=== PATIENT | male | born 1975 | race Caucasian/White ===

== ENCOUNTER 2022-08-19 11:13 | Emergency (ER) | payer BC, SELFPAY ==
[2022-08-19 11:16] VITALS: BP 121/75; PULSE 69; RESP 22; TEMP 35.7; O2SAT 97; BMI 33.3
[2022-08-19] MEDS: 0.9 % SODIUM CHLORIDE 1000 ml 1,000 ML IV ×2 (11:43→12:54)
[2022-08-19 11:46] LABS: Appearance Urine Cloudy (Clear); Bilirubin Urine 3+ (Negative); Blood Urine 3+ (Negative); Color Urine Brown (Yellow); Glucose Urine Negative (Negative); Ketones Urine 1+ (Negative); Leukocyte Esterase Urine Negative (Negative); Nitrite Urine Negative (Negative); Protein Urine 3+ (Negative); Specific Gravity Urine >= 1.030 (1.000-1.030); pH Urine 5.5 (5.0-8.5)
[2022-08-19] MEDS: KETOROLAC 30 MG/ML inj IVP (11:46)
[2022-08-19 11:48] LABS: Basophils Percent Auto 0.3 % (0.0-3.0); Eosinophils Percent Auto 0.9 % (0.0-7.0); Hematocrit 47.7 % (37.0-53.0); Hemoglobin* 16.6 gm/dL (13.5-17.5); Immature Granulocytes Pct Auto 0.3 %; Lymphocytes Percent Auto 20.6 % (20-44); Mean Corpuscular HGB Conc 35 gm/dL (32-36); Mean Corpuscular Hemoglobin 31 pg (26-34); Mean Corpuscular Volume 89 fL (80-100); Monocytes Percent Auto 7.4 % (0.0-11.0); Neutrophils Percent Auto 70.5 % (42.0-72.0); Platelet Count* 236 K/uL (140-440); Red Blood Count 5.37 m/uL (4.30-5.90)
[2022-08-19] MEDS: LORazepam 2 MG/ML inj 0.5 MG IVP (11:48)
[2022-08-19 11:51] LABS: Slide Review Reflex No
[2022-08-19 12:02] LABS: Chloride* 103 mmol/L (96-114); Sodium* 138 mmol/L (135-149)
[2022-08-19 12:03] LABS: Potassium* 3.5 mmol/L (3.6-5.1); RBC Urine >100 (0-2)
[2022-08-19 12:04] LABS: Bacteria Urine Many; Squamous Epithelial Cell Urine Few (None-Few)
[2022-08-19 12:05] LABS: Creatinine* 1.2 mg/dL (0.5-1.5); Est. Creatinine Clearance* 66.91; Estimated Glomerular Filt Rate 76 ml/min
[2022-08-19 12:06] LABS: Blood Urea Nitrogen* 13 mg/dL (5-24); Calcium* 9.6 mg/dL (8.4-10.6); Carbon Dioxide* 27 mmol/L (20-32); Glucose* 124 mg/dL (60-115); Mucus Urine Few
[2022-08-19 12:09] LABS: C Reactive Protein* 1.1 mg/dL (0.5-1.0)
[2022-08-19 12:49] VITALS: BP 139/101; PULSE 69; RESP 18; O2SAT 96
--- NOTE | 2022-08-19 13:30 | ED_ITS ---
HPI - General Adult General Date Seen: 08/19/22 Chief complaint: Back Injury/Pain Stated complaint: Lower back/groin pain Time Seen by Provider: 08/19/22 11:22 Source: patient Mode of arrival: ambulatory Limitations: no limitations History of Present Illness HPI narrative: Patient is the 47-year-old gentleman who presents ambulatory to the emergency room for evaluation of right-sided back pain with right groin pain, 4 days ago was diagnosed with right-sided renal colic, something that he has had he tells me 15 times in the last 15 years. He has always been able to pass this without an issue. Is not required instrumentation from Urology. No fevers chills or sweats but today the pain is so bad, he is not able to work, been using his Percocet for the discomfort but no other nonsteroidals for discomfort. Does he follow up that he could use them together. He has also been taking Flomax, and Keflex for a possible UTI. He was seen in the [place] [address] emergency room for this. Presents here as he is lives in [place]. Denies nausea vomiting, diarrhea, dysuria frequency, chest pain shortness of breath, neck pain or stiffness or rashes. Related Data Home Medications Medication Instructions Recorded Confirmed diclofenac sodium 75 mg 75 mg PO BID PRN 01/15/22 01/29/22 tablet,delayed release cephalexin 500 mg capsule 500 mg PO 3XD 08/19/22 08/19/22 oxycodone 5 mg tablet 5 - 10 mg PO Q6H PRN pain 08/19/22 08/19/22 tamsulosin 0.4 mg capsule 0.4 mg PO DAILY 08/19/22 08/19/22 Previous Rx's Medication Instructions Recorded bupropion HCl 150 mg 24 hr tablet, 150 mg PO QAM #14 tabs 01/15/22 extended release (Wellbutrin XL) bupropion HCl 300 mg 24 hr tablet, 300 mg PO QAM #30 tabs 01/15/22 extended release (Wellbutrin XL) diclofenac sodium 1 % topical gel 2 g topical QID #100 grams 01/22/22 (Voltaren Arthritis Pain) meloxicam 15 mg tablet 15 mg PO QDAY #30 tabs 01/22/22 zolpidem 10 mg tablet 10 mg PO QHS PRN sleep #30 tabs 07/29/22 Allergies Allergy/AdvReac Type Severity Reaction Status Date / Time aspirin Allergy Severe throat Verified 08/19/22 11:21 swelling, breathing issues Review of Systems Status of ROS: Reports: 10 or more systems reviewed and unremarkable except as noted in History and below [facility] Medical History Tobacco abuse ?Z72.0 - Tobacco use (ICD-10) Social phobia (04/21/10) ?F40.10 - Social phobia, unspecified (ICD-10) Seasonal allergies ?J30.2 - Other seasonal allergic rhinitis (ICD-10) Major depressive disorder with single episode (04/21/10) ?F32.9 - Major depressive disorder, single episode, unspecified (ICD-10) History of renal calculi (2011) ?Z87.442 - Personal history of urinary calculi (ICD-10) Insomnia ?G47.00 - Insomnia, unspecified (ICD-10) Surgical History History of shoulder surgery (2004) ?Z98.890 - Other specified postprocedural states (ICD-10) History of open reduction and internal fixation (ORIF) procedure (06/03/19) ?Z98.890 - Other specified postprocedural states (ICD-10) Social History 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: , 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, 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, 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, 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 Smoking Status: Current some day smoker What tobacco products do you use: cigarettes Do you use any of these nicotine containing products: Smokeless Tobacco Second hand tobacco smoke exposure: Yes How often do you have a drink containing alcohol: monthly or less How many standard drinks containing alcohol do you have on a typical day: 1 or 2 How often do you have six or more drinks on one occasion: Never AUDIT-C Alcohol total score: 1 Non-prescribed substance use: denies use Little interest or pleasure in doing things: not at all Feeling down, depressed, or hopeless: not at all service: No Exam Narrative: Exam Narrative: On examination he is in no apparent distress seen in room 3, but a little bit pale looking. Pupils are equal round reactive to light ,oropharynx is normal little dry, neck is supple with chest has good air entry bilaterally, heart sounds are normal, his abdomen is soft, no guarding normal bowel sounds, no evidence of any other abnormality. No tenderness to palpation over his back is a negative Mcneal's test, testicles both descended and normal, there is no evidence of any abnormality Const: Vital Signs, click to edit/add: Vital Signs - 24 hr 08/19/22 11:16 08/19/22 12:49 Temperature 96.2 F L Pulse Rate [Right Pulse Oximeter] 69 69 Respiratory Rate 22 18 Blood Pressure [Ri ght Upper Arm] 121/75 139/101 H Pulse Oximetry 97 96 Oxygen Delivery Me thod Room Air Room Air Documenting provider has reviewed patient's vital signs: yes Course Course Hospital Course: I was able to get his notes from [place], he had a 4 mm stone just above the UVJ on the right side, with moderate hydronephrosis. His urinalysis did show any white cells occasional bacteria, and positive nitrite. He grew out mixed alpesh less than 10,000 so that was a contaminant. Laboratory work here was reassuring, I do not see any evidence here of any infection, and I would like him to use the ibuprofen as the Toradol work very well for his pain. We gave him a couple L fluid, and he improved markedly here, I think going home with use of ibuprofen 1st line for the pain and some oxycodone secondary would be the rate ago. I did give him another 10 tablets, reviewed the [employer] this did not show a bunch of illicit prescriptions. Warned him about the affects of narcotics, side effects, and risk of addiction. In made him appointment to see his primary care doctor in 2 days, gave him advice on when to re-presented. Vital Signs Vital signs: Initial Vital Signs Temperature 96.2 F L 08/19/22 11:16 Temperature Source Temporal Artery Scan 08/19/22 11:16 Pulse Rate 69 08/19/22 11:16 Respiratory Rate 22 08/19/22 11:16 Blood Pressure 121/75 08/19/22 11:16 Blood Pressure Mean 90 08/19/22 11:16 Blood Pressure Position Sitting 08/19/22 11:16 Pulse Oximetry 97 08/19/22 11:16 Oxygen Delivery Method Room Air 08/19/22 11:16 Vital Signs Temperature 96.2 F L 08/19/22 11:16 Pulse Rate 69 08/19/22 11:16 Respiratory Rate 22 08/19/22 11:16 Blood Pressure 121/75 08/19/22 11:16 Pulse Oximetry 97 08/19/22 11:16 Oxygen Delivery Method Room Air 08/19/22 11:16 Temperature 96.2 F L 08/19/22 11:16 Pulse Rate 69 08/19/22 12:49 Respiratory Rate 18 08/19/22 12:49 Blood Pressure 139/101 H 08/19/22 12:49 Pulse Oximetry 96 08/19/22 12:49 Oxygen Delivery Method Room Air 08/19/22 12:49 Medical Decision Making MDM Narrative Medical decision making narrative: During this evaluation of this patient I considered multiple differential diagnosis is which included the life-threatening such as appendicitis, aortic aneurysm, mesenteric ischemia, bowel perforation, volvulus, and bowel obstruction. Other differential diagnosis is include but are not limited to cholecystitis, pancreatitis, hepatitis, gastritis, GERD, diverticulitis, peptic ulcer disease, pyelonephritis/UTI, renal colic/stone, testicular torsion as well as other acute scrotal processes, inflammatory bowel disease, as well as other etiologies Medical Records Medical records reviewed: Yes I reviewed the patient's medical records Lab Data Lab results reviewed: Yes I reviewed the patient's lab results Labs: Lab Results 08/19/22 08/19/22 Range/Units 11:37 12:19 WBC 11.30 H (4.50-11.00) K/uL RBC 5.37 (4.30-5.90) m/uL Hgb 16.6 (13.5-17.5) gm/dL Hct 47.7 (37.0-53.0) % MCV 89 (80-100) fL MCH 31 (26-34) pg MCHC 35 (32-36) gm/dL RDW Coeff of Christine 12.0 (11.5-15.5) % Plt Count 236 (140-440) K/uL Neut % (Auto) 70.5 (42.0-72.0) % Lymph % (Auto) 20.6 (20-44) % [place] % (Auto) 7.4 (0.0-11.0) % Eos % (Auto) 0.9 (0.0-7.0) % Baso % (Auto) 0.3 (0.0-3.0) % Neut # (Auto) 8.00 H (1.7-7.0) K/uL Lymph # (Auto) 2.30 (0.90-2.90) K/uL [place] # (Auto) 0.80 (0.00-0.90) K/UL Eos # (Auto) 0.10 (0.00-0.50) K/uL Baso # (Auto) 0.00 (0.00-0.30) K/uL Sodium 138 (135-149) mmol/L Potassium 3.5 L (3.6-5.1) mmol/L Chloride 103 (96-114) mmol/L Carbon Dioxide 27 (20-32) mmol/L BUN 13 (5-24) mg/dL Creatinine 1.2 (0.5-1.5) mg/dL Estimated Creat Clear 66.91 Estimated GFR 76 ml/min Glucose 124 H (60-115) mg/dL Lactate 2.0 H (0.5-1.9) mmol/L Calcium 9.6 (8.4-10.6) mg/dL C-Reactive Protein 1.1 H (0.5-1.0) mg/dL Urine Color Brown A (Yellow) Urine Appearance Cloudy A (Clear) Urine pH 5.5 (5.0-8.5) Ur Specific [place] >= 1.030 (1.000-1.030) Urine Protein 3+ A (Negative) Urine Glucose (UA) Negative (Negative) Urine Ketones 1+ A (Negative) Urine Blood 3+ A (Negative) Urine Nitrite Negative (Negative) Urine Bilirubin 3+ A (Negative) Urine Urobilinogen 1.0 (0.2-1.0) Ur Leukocyte Esterase Negative (Negative) Urine RBC >100 A (0-2) Urine WBC 2-5 (0-5) Ur Squamous Epith Cells Few (None-Few) Urine Bacteria Many A (None) Urine Mucus Few A (None) Lab Acknowledgement Test Added Discharge Plan Discharge Clinical Impression: Renal colic, Dehydration Patient Disposition: Home w/ Parent or Adult Condition: Improved Instructions: Dehydration (DC), Renal Colic (ED) Additional Instructions: Home rest use of ibuprofen 800 mg 3 times a day for the next 3 days. Continue with your other medications, I would just use the Percocet for breakthrough pain. Return here if fevers chills nausea vomiting, or worsening symptoms, the ibuprofen is really the drug of choice for this, and works really well. We have set you up for follow-up appoint with her primary care physician in 2 days for recheck. Follow up appointment is scheduled at the [facility] on 08/21 with a 10am appointment time. If you have any questions or need to reschedule, please call [phone]. [facility] [address] [place] [address] Prescriptions: No Action diclofenac sodium 75 mg tablet,delayed release (DR/EC) 75 mg PO BID PRN bupropion HCl [Wellbutrin XL] 150 mg tablet extended release 24 hr 150 mg PO QAM Qty: 14 0RF bupropion HCl [Wellbutrin XL] 300 mg tablet extended release 24 hr 300 mg PO QAM Qty: 30 2RF meloxicam 15 mg tablet 15 mg PO QDAY Qty: 30 0RF diclofenac sodium [Voltaren Arthritis Pain] 1 % gel 2 g topical QID Qty: 100 0RF tamsulosin 0.4 mg capsule 0.4 mg PO DAILY cephalexin 500 mg capsule 500 mg PO 3XD oxycodone 5 mg tablet 5 - 10 mg PO Q6H PRN (Reason: pain) zolpidem 10 mg tablet 10 mg PO QHS PRN (Reason: sleep) Qty: 30 5RF Follow Up/Referrals: Kevin Rios MD [Primary Care Provider] - Stand Alone Forms: [employer] Info Instructions
[2022-08-19 13:44] VITALS: BP 147/102; PULSE 67; RESP 18; TEMP 36.6; O2SAT 97
[2022-08-19 13:46] LABS: Procalcitonin* 0.07 ng/mL (<0.50)
== END 2022-08-19 13:57 | disposition home or self-care (01) ==
PROVIDERS: Emergency Provider Family Medicine; PCP Family Medicine
DX: N23 Unspecified renal colic (principal); E86.0 Dehydration
CPT/HCPCS: 36415; 80048; 81001; 83605; 84145; 85025; 86140; 87086; 96361; 96374; 96375; 99284; J1885; J2060; J7030

== ENCOUNTER 2023-02-03 08:29 | Outpatient (CLI) | payer BC, SELFPAY | END 2023-02-03 08:30 | disposition home or self-care (01) | PROVIDERS: PCP Family Medicine; Visit Provider Family Medicine | DX: E78.2 Mixed hyperlipidemia (principal) | CPT/HCPCS: 80048; 80061 ==

== ENCOUNTER 2024-02-09 11:25 | Outpatient (CLI) | payer BC, SELFPAY ==
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
== END 2024-02-09 11:26 | disposition home or self-care (01) ==
LOC: FBOREF 11:26
PROVIDERS: PCP Family Medicine; Visit Provider Family Medicine
DX: Z01.818 Encounter for other preprocedural examination (principal)
CPT/HCPCS: 80048; 85025

== ENCOUNTER 2024-02-12 06:18 | Day surgery (SDC) | payer BC, SELFPAY ==
[2024-02-12] VITALS (12 sets, daily range): BP systolic 101–131; BP diastolic 70–90; PULSE 53–75; RESP 14–16; TEMP 36.1–36.6; O2SAT 90–95; BMI 33.7
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
[2024-02-12] MEDS: SODIUM CHLORIDE 0.9 % (FLUSH) 10 ML SYRINGE IVF (06:41)
[2024-02-12] MEDS: 0.9 % SODIUM CHLORIDE 500 ML 500 ML 100 ML IV ×2 (07:36→08:44)
--- NOTE | 2024-02-12 07:41 | W.PM.H&PU ---
History & Physical Update History & Physical Update H&P Reviewed and patient assessed: No changes noted
[2024-02-12] MEDS: CEFAZOLIN 1 GM inj IVP (07:49)
--- NOTE | 2024-02-12 07:59 | W.ANESCHARGE ---
Anesthesia Charges Start Date/Time Anesthesia Start Date: 02/12/24 Anesthesia Start Time: 07:37 Stop Date/Time Anesthesia Stop Date: 02/12/24 Anesthesia Stop Time: 09:15
[2024-02-12] MEDS: BUPIVACAINE 0.5% 30 ML INJECTION (08:10)
--- NOTE | 2024-02-12 09:09 | PM.GSPRC ---
Operative Note Date of procedure: 02/12/24 Pre-op diagnosis: Chronic cholecystitis Post-op diagnosis: Same Type of Procedure: Laparoscopic cholecystectomy Indications: Patient is a 48-year-old male who presented to clinic with clinical workup and symptoms consistent with chronic cholecystitis. Different treatment options were reviewed with patient deciding to pursue surgical intervention. Risks and benefits of operative intervention were discussed at length with the patient. Risks included but was not limited to: Bleeding, infection, risk of damage to surrounding structures, possible need for additional procedures, possible need to convert to an open operation and postoperative complications such as pneumonia, pulmonary emboli or OH. All questions and concerns were addressed with the patient agreeing to proceed. Procedure Description: After discussing the risks and benefits of the procedure, the patient signed informed consent.? The operative site was marked and the patient was brought to the operating room and placed on the operating table in supine position.? Care was taken to pad the patient's pressure points.?? The patient was then intubated by anesthesia.?? The operative site was then prepped and draped in the usual sterile fashion.? A time-out was then performed. Entrance to the abdomen was gained via a 5 mm Visiport in the left upper quadrant. The abdomen was insufflated and briefly surveyed for signs of injury. There was none. 11 mm supra umbilical port was placed as well as 2 working ports along the right costal margin. Patient was then placed in reverse Trendelenburg position with the right side up. The gallbladder fundus was grasped and retracted cephalad. The infundibulum was grasped. A combination of hook cautery and blunt dissection was used to carefully dissect out the cystic duct and artery until they could clearly be seen entering the gallbladder without any intervening structures. The gallbladder was dissected off the cystic plate to achieve the critical view. Once this was achieved the cystic duct and artery were each clipped with 2 clips proximally and 1 clip distally and transected with the scissors. The gallbladder was then taken off of the liver bed and removed from the abdomen using an Endo-Catch bag. A small tear on the liver with seen within the gallbladder fossa, this was cauterized with no evidence of bleeding. There was some oozing around the clipped cystic duct. This bleeding was controlled with pressure and the application of Radha. At the end of the case the hemostasis was excellent. The ports were then removed under direct vision. The supra umbilical port fascia was closed with 0 Vicryl. The skin was closed with absorbable subcuticular suture. Instrument sponge and needle counts were correct at the end of the case. The patient was then woken and transferred to the PACU in stable condition. Findings: Cholelithiasis Anesthesia: GETA Surgeon: Billie Reyes MD Estimated blood loss (mL): 5 Specimen: Gallbladder Condition: stable Disposition: PACU
--- NOTE | 2024-02-12 09:17 | W.ANESCHARGE ---
Anesthesia Charges Start Date/Time Anesthesia Start Date: 02/12/24 Anesthesia Start Time: 07:37 Stop Date/Time Anesthesia Stop Date: 02/12/24 Anesthesia Stop Time: 09:15
[2024-02-12] MEDS: ONDANSETRON 2 MG/ML inj 4 MG IVP (09:26)
== END 2024-02-12 10:49 | disposition home or self-care (01) ==
PROVIDERS: PCP Family Medicine; Visit Provider Surgery
PROC: 0FT44ZZ Resection of Gallbladder, Percutaneous Endoscopic Approach (ICD-10-PCS; CPT 47562; principal; 2024-02-12 07:30)
DX: K80.10 Calculus of gallbladder with chronic cholecystitis without obstruction (principal)
CPT/HCPCS: 47562; 00790; 88304; J0330; J0665; J0690; J1100; J1171; J1885; J2250; J2371; J2405; J2704; J2710; J3010; J7030

== ENCOUNTER 2024-06-21 09:19 | Outpatient (CLI) | payer BC, SELFPAY ==
--- NOTE | 2024-06-21 09:15 | MR_ITS ---
[address] [address] Phone:?[phone] Fax:?[phone] Referring Physician Information: Aaron Duque [address] [facility] [address] Phone:?[phone] Fax:?[phone] Patient:?Gigi Ramos D.O.B:?1975 Sex:?Male Phone:?[phone] [facility] MRN:?[id number] Exam Date:?06/21/2024 EXAM: MRI EXAMINATION OF THE LEFT KNEE CLINICAL INFORMATION: Left knee pain. Status post fall with injury. Possible ACL tear. TECHNICAL INFORMATION: Coronal PD and STIR. Axial PD and T2 fat saturation. Sagittal PD and PD fat saturation images acquired. No prior studies for comparison. INTERPRETATION: Bones: There is a 1.3 cm geographic bone lesion centrally situated within the proximal metaphyseal tibia. Lobulated appearance of predominant high T2 signal intensity lesion without surrounding bone marrow edema signal. This is an indolent appearing and likely chondroid lesion and may represent enchondroma. No evidence for an occult fracture or osseous contusion. No other abnormal bone marrow edema pattern is identified. Ligaments and tendons: The medial collateral ligament is intact, without acute sprain or tear. The iliotibial band, fibular collateral ligament, biceps femoris tendon and popliteus tendon all are intact. The anterior cruciate ligament is intact without acute sprain or tear. The posterior cruciate ligament is intact. Extensor Mechanism: The patellar and quadriceps tendons are intact. The medial and lateral retinacula are intact. Knee Joint: There is no knee joint effusion. There is a small popliteal cyst. There is no discrete loose body seen within the joint. Medial Compartment: There is fraying/mild tearing involving the inner portion and apical margin within the body of the medial meniscus. There is no other medial meniscal tear. No displaced flap fragment or parameniscal cyst. There is no focal chondral defect. Mild chondral thinning involves the medial joint compartment. Lateral Compartment: There is no evidence for discrete lateral meniscal tear. No displaced flap fragment or parameniscal cyst. There is no focal chondral defect. No other significant changes of chondromalacia. Patellofemoral articulation: There is no focal chondral defect. No other significant chondromalacia. CONCLUSION: 1. Fraying/mild tearing involves the inner portion and apical margin within the body of the medial meniscus. 2. No lateral meniscal tear. The cruciate ligaments are normally intact. 3. The articular cartilage of the knee is preserved. 4. No evidence for a knee joint effusion. There is a small popliteal cyst. 5. No occult fracture or osseous contusion. KES Electronically signed on 06/21/2024 11:40:00 AM by Lopez Rodrigues M.D.
== END 2024-06-21 09:20 | disposition home or self-care (01) ==
LOC: MRI 09:19
PROVIDERS: PCP Family Medicine; Visit Provider Physician Assistant
DX: M25.562 Pain in left knee (principal); S83.242A Other tear of medial meniscus, current injury, left knee, initial encounter
CPT/HCPCS: 73721

== ENCOUNTER 2024-06-28 16:27 | Emergency (ER) | payer BC, SELFPAY ==
[2024-06-28] VITALS (18 sets, daily range): BP systolic 107–143; BP diastolic 77–97; PULSE 69–88; RESP 10–24; TEMP 36.1; O2SAT 88–98; BMI 33.3
--- NOTE | 2024-06-28 16:46 | ED.LOWEXIN ---
HPI - Extremity Injury (Lower) General Time Seen by Provider: 16:46 Date Seen: 06/28/24 Chief Complaint: Extremity Pain/Injury, Lower Stated Complaint: broken leg Time Seen by Provider: 06/28/24 16:38 Source: patient, family and RN notes reviewed Mode of arrival: ambulatory Limitations: no limitations History of Present Illness HPI Narrative: Patient is a 49-year-old male brought in by his son with concern of significant injury to his left lower leg, it does feel floppy. He denies any numbness tingling in the foot but the leg is extremely painful. Was caring a heavy would slab, got his leg pinned by it/hit in the front of the leg and then actually fell over the slab. The only injury is this left lower leg. He has had a history of open reduction internal fixation of a prior fracture in this leg, notes there are pins and screws, question plated. Nothing else was injured, did not hit his head, no neck or back pain, no other extremity pain. Related Data Previous Rx's ?Medication ?Instructions ?Recorded zolpidem 10 mg tablet 10 mg PO QHS PRN sleep #30 tabs 02/17/24 Allergies Allergy/AdvReac Type Severity Reaction Status Date / Time aspirin Allergy Severe throat Verified 06/25/24 08:59 swelling, breathing issues Review of Systems Narrative: As per HPI. [facility] Medical History (Updated 06/28/24 @ 18:59 by Edwina Zaldivar MD) Mixed hyperlipidemia ?E78.2 - Mixed hyperlipidemia (ICD-10) Tobacco abuse ?Z72.0 - Tobacco use (ICD-10) Social phobia (04/21/10) ?F40.10 - Social phobia, unspecified (ICD-10) Seasonal allergies ?J30.2 - Other seasonal allergic rhinitis (ICD-10) Major depressive disorder with single episode (04/21/10) ?F32.9 - Major depressive disorder, single episode, unspecified (ICD-10) History of renal calculi (2011) ?Z87.442 - Personal history of urinary calculi (ICD-10) Insomnia ?G47.00 - Insomnia, unspecified (ICD-10) Surgical History (Updated 02/09/24 @ 11:22 by Kevin Rios MD) History of open reduction and internal fixation (ORIF) procedure (06/03/19) ?Z98.890 - Other specified postprocedural states (ICD-10) History of shoulder surgery (2004) ?Z98.890 - Other specified postprocedural states (ICD-10) Social History (Updated 06/07/24 @ 09:56 by Miriam Guy ~ [facility], [facility]) 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: , 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, 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, 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, 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 smoker and chewing tobacco quit 12/2023 What is your current living situation?: I presently have a place to live Problems where you live: no known problems In the past 12 months, utilities in danger of being shut off: no In past 12 months, lack of transportation kept you from medical appts, meetings, work, or getting things needed for daily living: no In the past 12 mos, have been you worried that your food would run out before you had money to buy more?: never true In the past 12 mos, the food you bought just didn't last and you didn't have money to buy more?: never true Smoking Status: Former smoker What tobacco products do you use: cigarettes Smoking quit date/years: <= 15 years ago Do you use any of these nicotine containing products: None and Smokeless Tobacco Second hand tobacco smoke exposure: Yes How often do you have a drink containing alcohol: never How often do you have six or more drinks on one occasion: Never AUDIT-C Alcohol total score: 0 Non-prescribed substance use: denies use Caffeine: Yes How often does anyone, including family, friends and others, physically hurt you: never How often does anyone, including family, friends and others, insult or talk down to you: never How often does anyone, including family, friends and others, threaten you with harm: never How often does anyone, including family, friends and others, scream or curse at you: never service: No Exam Const: Vital Signs, click to edit/add: Vital Signs - 24 hr 06/28/24 16:33 06/28/24 16:39 06/28/24 16:45 Temperature 97.0 F L Pulse Rate 86 83 Pulse Rate [Pulse Oximeter] 79 Respiratory Rate 18 Blood Pressure Blood Pressure [Le ft Upper Arm] 114/81 Pulse Oximetry 97 97 97 Oxygen Delivery Me thod Room Air 06/28/24 16:47 06/28/24 17:00 06/28/24 17:01 Temperature Pulse Rate 78 71 Pulse Rate [Pulse Oximeter] Respiratory Rate 24 Blood Pressure 122/82 Blood Pressure [Le ft Upper Arm] Pulse Oximetry 98 94 95 Oxygen Delivery Me thod Room Air This 49-year-old male is alert, interactive but in obvious distress. There is an obvious deformity in his mid anterior lower leg. I can feel dorsalis pedis and posterior tibialis pulses, he feels normal light touch sensation of his toes. He does not have tenderness over the patella or the medial or lateral joint line but he does seem to have some tenderness over that proximal fibula. He is developing some ecchymosis and some swelling in that mid tibial area. Lungs are clear, good air entry, no wheezing or crackles, does have some tachypnea right now which I presume is from pain. CV regular rate and rhythm no murmur. Abdomen is soft. No other abnormality noted in the thigh of his left lower extremity, he is moving his right leg, atraumatic, upper extremities atraumatic. Documenting provider has reviewed patient's vital signs: yes Course Course ED Course: Patient is going to be given some morphine and Zofran, see if he gets some initial pain control, will have him on pulse oximetry to monitor his respiratory status. Nursing staff already has an IV in. He has visible deformity of this leg, do have concern about underlying fracture and definitely concern about development compartment syndrome with this type of injuring where his injury is. Need to get imaging done and have called x-ray to come over to do portable films of his left tib-fib. He is having severe pain right now but no numbness tingling, good pulses distally in his leg. This patient is likely to be a transfer there is underlying fracture. Reevaluation(s) Time of Reevaluation #1: 17:15 Reevaluation #1: Reviewed with patient and his presumed who is now here that there is fracture through the plated area and also proximal fibula fracture. He needs further pain medicine, will order some for him. He had his initial injury repaired at [facility], will try them 1st. If they cannot take his transfer, discussed I will just start contacting other trauma centers that have capacity to fix something of this nature. Time of Reevaluation #2: 18:48 Reevaluation #2: Placed a long leg posterior splint with Ortho Glass. We did not have the bulky padding, had to use routine padding with this splint. He still had intact distal pulses and normal sensation of his toes. Did need to give him some IV ativan for visualized muscle spasms plus some more IV dilaudid. Consultations Consultation #1: Spoke with Kalie RAMESH in the triage center. She is awaiting her films to arrive, will page out Orthopedics. 5:47 p.m.: The resident Dr. Lazo did discuss case with me. They will direct admit this patient to 1 of the orthopedic trauma services. I will put is posterior splint on, they have requested that we do a CT of his tib fib before transfer. We will push these images down. Did update his of the plan. Time: 17:21 Vital Signs Vital signs: Initial Vital Signs Temperature 97.0 F L 06/28/24 16:33 Temperature Source Temporal Artery Scan 06/28/24 16:33 Pulse Rate 79 06/28/24 16:33 Pulse Rhythm Regular 06/28/24 16:33 Respiratory Rate 18 06/28/24 16:33 Blood Pressure 114/81 06/28/24 16:33 Blood Pressure Mean 92 06/28/24 16:33 Blood Pressure Position Supine 06/28/24 16:33 Pulse Oximetry 97 06/28/24 16:33 Oxygen Delivery Method Room Air 06/28/24 16:33 Vital Signs Temperature 97.0 F L 06/28/24 16:33 Pulse Rate 79 06/28/24 16:33 Respiratory Rate 18 06/28/24 16:33 Blood Pressure 114/81 06/28/24 16:33 Pulse Oximetry 97 06/28/24 16:33 Oxygen Delivery Method Room Air 06/28/24 16:33 Temperature 97.0 F L 06/28/24 16:33 Pulse Rate 71 06/28/24 17:01 Respiratory Rate 24 06/28/24 17:01 Blood Pressure 122/82 06/28/24 17:01 Pulse Oximetry 95 06/28/24 17:01 Oxygen Delivery Method Room Air 06/28/24 17:01 Medications Administered Medications: Discontinued Medications Generic Name Dose Route Start Last Admin Trade Name Freq PRN Reason Stop Dose Admin Hydromorphone HCl 0.5 mg 06/28/24 17:22 06/28/24 17:26 Hydromorphone 0.5 Mg/0.5 Ml Inj IVP 06/28/24 17:23 0.5 mg ONCE ONE Administration Morphine Sulfate 4 mg 06/28/24 16:47 06/28/24 16:51 Morphine 4 Mg/Ml Inj IVP 06/28/24 16:48 4 mg ONCE ONE Administration Ondansetron HCl 4 mg 06/28/24 16:47 06/28/24 16:51 Ondansetron 2 Mg/Ml Inj IVP 06/28/24 16:48 4 mg ONCE ONE Administration MDM - Extremity Injury (Lower) Imaging Data XR tib fib: Attestation: I have reviewed the pertinent imaging results. My impression: Did visualize the fracture in the mid tibia within the prior fixation hardware. He also has a nondisplaced proximal fibula fracture. Await Radiology over-read. Radiologist's impression: Patient: [facility] Facility:?[facility] Patient ID:?[id number] Site Patient ID:?[id number]. Site :?1975 Study:?XRay-Extremity Left 2V-06/28/2024 5:03:59 PM Ordering Physician:Shadia Bland Final Report: Indication: Injury. Technique: Two views of the left tibia and fibula. Comparison: Left ankle radiographs dated 01/09/2024. Findings/Impression: Plate and screw fixation of the tibia. Acute displaced periprosthetic fractures of the mid tibial diaphysis, with displacement of at least the 2 superior most screws. Additional minimally displaced oblique fracture of the proximal fibular meta diaphysis. Dictated by Jyoti Rajput MD @ 06/28/2024 5:59:16 PM (Electronic Signature) Discharge Plan Discharge Clinical Impression: Tibia/fibula fracture Qualifiers: Encounter type: initial encounter Fracture type: closed Laterality: left Qualified Code(s): S82.202A - Unspecified fracture of shaft of left tibia, initial encounter for closed fracture; S82.402A - Unspecified fracture of shaft of left fibula, initial encounter for closed fracture Patient Disposition: [facility] Discharge Location: [facility], [place] Condition: Stable Prescriptions: No Action zolpidem 10 mg tablet 10 mg PO QHS PRN (Reason: sleep) Qty: 30 2RF Follow Up/Referrals: Kevin Rios MD [Primary Care Provider] - Stand Alone Forms: No World Bordersth Info Instructions
--- NOTE | 2024-06-28 16:50 | CRLHL7_ITS ---
For Patients: As a result of the Century Cures Act, medical imaging exams and procedure reports are released immediately into your electronic medical record. You may view this report before your referring provider. If you have questions, please contact your health care provider. Indication: Injury. Technique: Two views of the left tibia and fibula. Comparison: Left ankle radiographs dated 01/09/2024. Findings/Impression: Plate and screw fixation of the tibia. Acute displaced periprosthetic fractures of the mid tibial diaphysis, with displacement of at least the 2 superior most screws. Additional minimally displaced oblique fracture of the proximal fibular meta diaphysis. Dictated by Jyoti Rajput MD @ 06/28/2024 5:59:16 PM (Electronically Signed)
[2024-06-28] MEDS: ONDANSETRON 2 MG/ML inj 4 MG IVP (16:51)
[2024-06-28] MEDS: MORPHINE 4 MG/ML INJ IVP (16:51)
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
[2024-06-28] MEDS: HYDROmorphone 0.5 mg/0.5 ml inj IVP ×2 (17:26→18:52)
--- NOTE | 2024-06-28 17:50 | CRLHL7_ITS ---
For Patients: As a result of the Century Cures Act, medical imaging exams and procedure reports are released immediately into your electronic medical record. You may view this report before your referring provider. If you have questions, please contact your health care provider. Indication: TIB FIB FX Technique: Noncontrast CT of the left lower extremity. Tibia and fibula. Comparison: Exams dating back to 2021 Findings/impression: : Acute complete oblique fracture through the mid shaft of the tibia. This involves the top 3 screws of the ORIF. Associated 6 millimeters of displacement. Acute complete oblique fracture of the proximal 3rd shaft of the fibula with out displacement. Bony mineralization is age-appropriate. Associated soft tissue hematomas abutting the fracture sites. Please note that all CT scans at this facility use dose modulation, iterative reconstruction, and/or weight-based dosing when appropriate to reduce radiation dose to as low as reasonably achievable. Dictated by Kevin Mata MD @ 06/28/2024 7:16:47 PM (Electronically Signed)
[2024-06-28] MEDS: LORazepam 2 MG/ML inj 1 MG IVP (18:35)
== END 2024-06-28 19:35 | disposition short-term general hospital (02) ==
PROVIDERS: Emergency Provider Family Medicine; PCP Family Medicine
DX: S82.202A Unspecified fracture of shaft of left tibia, initial encounter for closed fracture (principal)
CPT/HCPCS: 29505; 73590; 73700; 94761; 96374; 96375; 99284; 99285; J1171; J2060; J2270; J2405

== ENCOUNTER 2024-06-28 19:28 | Outpatient (CLI) | payer BC, SELFPAY | END 2024-06-28 19:29 | disposition home or self-care (01) | PROVIDERS: PCP Family Medicine; Visit Provider Student in an Organized Health Care Education/Training Program | DX: S82.202A Unspecified fracture of shaft of left tibia, initial encounter for closed fracture (principal) | CPT/HCPCS: A0425; A0433 ==